=== PATIENT | male | born 1940 | race Caucasian/White ===

== ENCOUNTER 2021-07-25 08:29 | Outpatient (CLI) | payer MEDICARE, BC ==
[2021-07-25 08:55] LABS: #Basophils 0.2 thou/uL (0.0-0.2); #Eosinphils 0.7 thou/uL (0.0-0.7); #Lymphocytes 1.4 thou/uL (1.20-3.40); #Monocytes 0.6 thou/uL (0.11-0.59); #Neutrophils 9.1 thou/uL (1.40-6.50); %Basophils 1.3 % (0.0-1.0); %Eosinophils 6.1 % (0.0-10.0); %Lymphocytes 11.6 % (21.0-51.0); %Monocytes 4.6 % (0.0-10.0); %Neutrophils 76.4 % (42.0-75.0); Hemoglobin 14.9 g/dL (14.0-18.0); Mean Corpuscular HGB CONC 32.4 g/dL (32.0-36.0); Mean Corpuscular Hemoglobin 29.2 pg (27.0-31.0); Mean Corpuscular Volume 90.2 fL (78.0-98.0); Mean Platelet Volume 7.3 fL (7.4-10.4); Platelet Count 241 thou/uL (130-400); RBC Distribution Width 12.9 % (11.5-14.5); Red Blood Cell (RBC) Count 5.11 mill/uL (4.70-6.10); White Blood Cell (WBC) Count 11.9 thou/uL (4.8-10.8)
[2021-07-25 09:06] LABS: Anion Gap 16 mmol/L (10-20); BUN (Urea Nitrogen) 18 mg/dL (8.4-25.7); Calc. Creatinine Clearance 0 mL/min (70-130); Carbon Dioxide 22 mmol/L (23-31); Chloride 105 mmol/L (98-107); Potassium 4.1 mmol/L (3.5-5.1); Sodium 139 mmol/L (136-145)
[2021-07-25 09:07] LABS: ALT (SGPT) 18 U/L (8-55); AST (SGOT) 17 U/L (5-34); Alkaline Phosphatase 45 U/L (40-110); Bilirubin, Total 0.9 mg/dL (0.2-1.2); Calcium 9.3 mg/dL (7.8-10.44); Cardiac Risk 2.5 (Less than 4.5); Cholesterol 196 mg/dl (< 200 Desired); Globulin 2.9 g/dL (2.4-3.5); Glucose 175 mg/dL (83-110); HDL Cholesterol 77 mg/dL (>60 Neg Risk); LDL Cholesterol, Calculated 98 mg/dL; Protein, Total 6.9 g/dL (5.8-8.1); Triglycerides 104 mg/dL (Less than 150)
[2021-07-25 12:49] LABS: Hemoglobin A1c 7.5 % (4.0-6.0)
== END 2021-07-25 08:30 | disposition home or self-care (01) ==
LOC: MADLAB 08:29
PROVIDERS: ATTEND Family Medicine
DX: E11.9 Type 2 diabetes mellitus without complications (principal); E78.00 Pure hypercholesterolemia, unspecified; I10 Essential (primary) hypertension
CPT/HCPCS: 36415; 80053; 80061; 83036; 84443; 85025

== ENCOUNTER 2021-09-20 13:55 | Outpatient (CLI) | payer MEDICARE, BC | END 2021-09-20 13:56 | disposition home or self-care (01) | LOC: MADRAD 13:55 | PROVIDERS: ATTEND Registered Nurse | DX: R06.02 Shortness of breath (principal) | CPT/HCPCS: 71046 ==

== ENCOUNTER 2023-03-24 14:14 | Inpatient (IN) | payer MEDICARE, BC ==
[2023-03-24 19:25] VITALS: BMI 26.9
[2023-03-24] MEDS ORDERED: Ondansetron ODT 4 MG TAB PO PRN (19:46)
[2023-03-24] MEDS ORDERED: Cyclobenzaprine 10 MG TAB PO PRN (19:46)
[2023-03-24] MEDS: FLU VACC QS2023(65UP)/MF59C/PF 60 MCG/0.5 ML SYRINGE IM ONE (19:55)
[2023-03-24] MEDS: Apixaban 5 MG TAB PO SCH (20:17)
[2023-03-24] MEDS: Senokot S 8.6-50 MG TAB PO SCH (20:17)
[2023-03-24] MEDS: Acetaminophen 500 MG TAB PO SCH (20:17)
[2023-03-24] MEDS: Ipratropium/Albuterol 3 ML NEB NEB PRN (20:17)
[2023-03-24] MEDS: Metoprolol Tartrate 25 MG TAB PO SCH (20:17)
[2023-03-24] MEDS: guaiFENesin ER 600 MG TAB PO SCH (20:18)
[2023-03-25] MEDS: Acetaminophen/Codeine 30-300mg Tablet PO PRN (05:30)
[2023-03-25] MEDS: predniSONE 5 MG TAB PO SCH (08:30)
[2023-03-25] MEDS: Empagliflozin 10 MG TAB PO SCH (08:31)
[2023-03-25] MEDS: dilTIAZem CD 120 MG CAP PO SCH (08:31)
[2023-03-25] MEDS: Rosuvastatin 10 MG TAB PO SCH (08:31)
[2023-03-25] MEDS: Polyethylene Glycol 3350 17 GM Packet PO SCH (08:32)
[2023-03-25] MEDS ORDERED: FLU VACC QS2023(65UP)/MF59C/PF 60 MCG/0.5 ML SYRINGE IM ONE (09:00)
[2023-03-26] MEDS: Ferrous Gluconate 324 MG TAB PO SCH (08:42)
[2023-03-30 07:12] LABS: Hematocrit 45.1 % (42.0-52.0); Hemoglobin 13.8 g/dL (14.0-18.0); Platelet Count 415 10x3/uL (130-400)
[2023-03-30] MEDS ORDERED: Acetaminophen/Codeine 30-300mg Tablet PO PRN (12:07)
[2023-03-30] MEDS: Rosuvastatin 10 MG TAB PO SCH (20:55)
[2023-04-02] MEDS ORDERED: Melatonin 3 MG TAB PO PRN (22:12)
[2023-04-03 15:06] VITALS: BP 128/66; TEMP 98.3
== END 2023-04-03 14:35 | disposition home health service (06) | DRG 560 ==
LOC: MADMS 19:14
PROVIDERS: ADMIT Family Medicine; ATTEND Family Medicine
DX: S72.91XD Unspecified fracture of right femur, subsequent encounter for closed fracture with routine healing (principal); I48.20 Chronic atrial fibrillation, unspecified; I10 Essential (primary) hypertension; R53.81 Other malaise; J44.9 Chronic obstructive pulmonary disease, unspecified; E11.9 Type 2 diabetes mellitus without complications; E78.5 Hyperlipidemia, unspecified; D64.89 Other specified anemias; G89.4 Chronic pain syndrome; Z96.641 Presence of right artificial hip joint; Z79.01 Long term (current) use of anticoagulants; Z98.890 Other specified postprocedural states; W18.30XD Fall on same level, unspecified, subsequent encounter
CPT/HCPCS: 36416; 85014; 85018; 85049; J7512; J7620